=== PATIENT | female | born 1995 | race Caucasian/White ===

== ENCOUNTER 2021-04-14 10:21 | Emergency (ER) | payer OTHER ==
[~2021-04-14] VITALS: Ht 149.9 cm; Wt 44.1 kg
[2021-04-14 12:05] LABS: INFLUENZA TYPE A NEGATIVE FOR TYPE A (NEGATIVE); INFLUENZA TYPE B NEGATIVE FOR TYPE B (NEGATIVE)
[2021-04-14] MEDS ORDERED: SODIUM CHLORIDE 0.9% 1,000 ML IV ONE (12:15)
[2021-04-14 13:39] VITALS: BP 108/71
== END 2021-04-14 13:41 | disposition home or self-care (01) ==
LOC: EMS 10:21
DX: J06.9 Acute upper respiratory infection, unspecified (principal); K21.9 Gastro-esophageal reflux disease without esophagitis; Z20.822 Contact with and (suspected) exposure to COVID-19
CPT/HCPCS: 71045; 87430; 87804; 96360; 99284; J7030; U0003